=== PATIENT | male | born 1945 | race Two or more races ===

== ENCOUNTER 2018-10-21 15:32 | Emergency (ER) | payer MEDICARE, MEDICAID ==
[2018-10-21] MEDS ORDERED: IBUPROFEN 600 MG TABLET PO ONE (16:22)
--- NOTE | 2018-10-21 16:23 | ER Document Report ---
ED Medical Screen (RME) - General Chief Complaint: Back Pain Stated Complaint: BACK PAIN Time Seen by Provider: 10/21/18 16:21 Mode of Arrival: Ambulatory Information source: Patient TRAVEL OUTSIDE OF THE [place] IN LAST 30 DAYS: No - HPI Patient complains to provider of: LBP Onset: Other - pt with R-sided LBP intermittently for the past 3-4 days with exacerbation today. Denies trauma - Related Data Allergies/Adverse Reactions: No Known Allergies Allergy (Verified 10/21/18 15:37) Past Medical History - Social History Chew tobacco use (# tins/day): No Frequency of alcohol use: None Drug Abuse: None Pulmonary Medical History: Reports: Hx COPD Renal/ Medical History: Denies: Hx Peritoneal Dialysis Past Surgical History: Reports: Hx Cholecystectomy Physical Exam - Vital signs Vitals: Temp Pulse Resp BP Pulse Ox 97.8 F 111 H 21 H 148/49 H 95 10/21/18 15:45 10/21/18 15:45 10/21/18 15:45 10/21/18 15:45 10/21/18 15:45 Course - Vital Signs Vital signs: Temp Pulse Resp BP Pulse Ox 97.8 F 111 H 21 H 148/49 H 95 10/21/18 15:45 10/21/18 15:45 10/21/18 15:45 10/21/18 15:45 10/21/18 15:45
[2018-10-21 17:42] LABS: APPEARANCE,URINE CLEAR; BILIRUBIN,URINE NEGATIVE (NEGATIVE); COLOR,URINE YELLOW; GLUCOSE, URINE NEGATIVE (NEGATIVE); KETONES,URINE NEGATIVE (NEGATIVE); LEUKOCYTE ESTERASE,URINE NEGATIVE (NEGATIVE); NITRITE,URINE NEGATIVE (NEGATIVE); PROTEIN,URINE NEGATIVE (NEGATIVE); URINE SPECIFIC GRAVITY 1.005; UROBILINOGEN,URINE NEGATIVE mg/dL (<2.0)
--- NOTE | 2018-10-21 17:49 | RADIOLOGY REPORT (SQ) ---
EXAM DESCRIPTION: L SPINE WHOLE COMPLETED DATE/TIME: 10/21/2018 5:36 pm REASON FOR STUDY: R LBP COMPARISON: None. NUMBER OF VIEWS: Five views including obliques. TECHNIQUE: AP, lateral, oblique, and sacral radiographic images acquired of the lumbar spine. LIMITATIONS: None. FINDINGS: MINERALIZATION: Osteopenia. SEGMENTATION: Normal. No transitional anatomy. ALIGNMENT: Normal. VERTEBRAE: There is a superior endplate deformity of the L3 vertebral body. DISCS: Generally mild multilevel disc degenerative disease and osteophytosis. Moderate to severe mul tilevel facet degenerative disease. POSTERIOR ELEMENTS: No pars defect or posterior arch defects. HARDWARE: None in the spine. PARASPINAL SOFT TISSUES: Normal. PELVIS: Intact as visualized. No fractures or worrisome bone lesions. SI joints intact. OTHER: No other significant finding. IMPRESSION: Age-indeterminate superior endplate deformity the L3 vertebral body. Correlate for acut e point tenderness. MRI may be used to evaluate for acute marrow edema if desired. Otherwise mild m ultilevel disc degenerative disease and moderate to severe multilevel facet degenerative disease of t he lumbar spine. TECHNICAL DOCUMENTATION: JOB ID: [id number] [employer]- All Rights Reserved Reading location - IP/workstation name: [email or web address]
[2018-10-21] MEDS ORDERED: HYDROMORPHONE HCL INJ/PF 2 MG/ML AMPULE IM ONE (19:56)
[2018-10-21] MEDS ORDERED: LIDOCAINE 5% (700 MG) TRANSDERMAL ADH..PATCH TP ONE (19:56)
[2018-10-21] MEDS ORDERED: HYDROCODONE/ACETAMINOPHEN 5-325 MG (6 TAB/ER DISP) PO PRN (19:57)
--- NOTE | 2018-10-21 20:00 | ER Document Report ---
ED General - General Chief Complaint: Back Pain Stated Complaint: BACK PAIN Time Seen by Provider: 10/21/18 16:21 Mode of Arrival: Ambulatory Notes: Patient is a 73-year-old male with a past medical history of COPD, continues to smoke, hypertension, history of lung cancer, previously on chemotherapy and radiation although has not been on treatment in 7-8 months. The patient is visiting here from [place]. He presents with 2 months of intermittent right low back pain that has been treated by his primary care physician. He has describes the pain as a throbbing, aching, intermittent pain to his right mid and low back although denies midline tenderness. States the pain is dramatically worsened by movement or lying on the affected area. He denies any shortness of breath, pleuritic pain, hemoptysis or history of DVT or pulmonary embolus. Denies any direct trauma to the area. States that he has been in touch with his primary care doctor regarding this issue. He has tried hydrocodone, cyclobenzaprine, has had no relief with these medications. He denies any bowel or bladder incontinence, urinary mc, difficulty M bleeding, weakness or numbness. TRAVEL OUTSIDE OF THE [place] IN LAST 30 DAYS: No - Related Data Allergies/Adverse Reactions: No Known Allergies Allergy (Verified 10/21/18 15:37) Past Medical History - General Information source: Patient - Social History Smoking Status: Current Every Day Smoker Chew tobacco use (# tins/day): No Frequency of alcohol use: None Drug Abuse: None Lives with: Family Family History: Reviewed & Not Pertinent Patient has suicidal ideation: No Patient has homicidal ideation: No Pulmonary Medical History: Reports: Hx COPD Renal/ Medical History: Denies: Hx Peritoneal Dialysis Past Surgical History: Reports: Hx Cholecystectomy Review of Systems - Review of Systems Notes: Constitutional: Negative for fever. HENT: Negative for sore throat. Eyes: Negative for visual changes. Cardiovascular: Negative for chest pain. Respiratory: Negative for shortness of breath. Gastrointestinal: Negative for abdominal pain, vomiting or diarrhea. Genitourinary: Negative for dysuria. Musculoskeletal: Positive for mid and low back pain Skin: Negative for rash. Neurological: Negative for headaches, weakness or numbness. 10 point ROS negative except as marked above and in HPI. Physical Exam - Vital signs Vitals: Temp Pulse Resp BP Pulse Ox 97.8 F 111 H 21 H 148/49 H 95 03/23/19 15:45 10/21/18 15:45 10/21/18 15:45 10/21/18 15:45 10/21/18 15:45 Interpretation: Tachycardic - Resolved at the time of my assessment with a heart rate of 96 Notes: PHYSICAL EXAMINATION: GENERAL: Frail, somewhat elderly male in no acute distress. Standing up walking around the room. HEAD: Atraumatic, normocephalic. EYES: Pupils equal round and reactive to light, extraocular movements intact, sclera anicteric, conjunctiva are normal. ENT: nares patent, oropharynx clear without exudates. Moist mucous membranes. NECK: Normal range of motion, supple without lymphadenopathy LUNGS: Breath sounds clear to auscultation bilaterally and equal. No wheezes rales or rhonchi. HEART: Regular rate and rhythm without murmurs ABDOMEN: Soft, nontender, normoactive bowel sounds. No guarding, no rebound. No masses appreciated. Back: No midline spinal tenderness, step-offs or deformities. There is pain on palpation of the paraspinous muscles in the lower thoracic and upper right paraspinous spaces. EXTREMITIES: 5 out of 5 strength both distally and proximally bilateral lower extremities. 2+ patellar reflexes bilaterally. No clonus. Sensation grossly intact in the bilateral lower extremities. Patient is able to ambulate without difficulty. Normal range of motion, no pitting or edema. No cyanosis. NEUROLOGICAL: No focal neurological deficits. Moves all extremities spontaneously and on command. PSYCH: Normal mood, normal affect. SKIN: Warm, Dry, normal turgor, no rashes or lesions noted. Course - Re-evaluation Re-evalutation: 10/21/18 19:59 Presentation of a well appearing patient complaining of acute on chronic back pain. Patient states that he is intermittently had this back pain for the last 2 months although it became worse over the last 2 days. Has been following with his primary care doctor in [place] but he is down visiting his son and wanted to seek medical attention due to the degree of pain. Exam is without point tenderness over vertebral bodies, pulsatile abdominal mass, and patient has symmetric and intact lower extremity strength, sensation, and reflexes without clonus. 2+ symmetric medial malleolar and dorsalis pedis pulses. The patient does have a history of lung cancer, not currently on chemotherapy or radiation. I have expressed concern that the possibility of his pain could be related to metastatic disease although notably on exam his pain is almost exclusively off to the flanks and paraspinous muscles and he has no midline spinal tenderness, swelling, step-offs or deformities. I do not have the availability of MRI at this time and do not believe that he requires an emergent MRI as he has no neurologic impingement symptoms, no fever, and that his symptoms have been ongoing for at least 2 months. The patient denies any component of pleuritic pain, shortness of breath, hemoptysis and is very clear to state that the only one that seems to worsen the pain is movement. His clinical history is not consistent with an acute pulmonary embolus. At this time will discharge with return precautions and follow-up recommendations. Verbal discharge instructions given a the bedside and opportunity for questions given. Medication warnings reviewed. Patient is in agreement with this plan and has verbalized understa nding of return precautions and the need for primary care follow-up in the next 24-72 hours. - Vital Signs Vital signs: Temp Pulse Resp BP Pulse Ox 97.6 F 102 H 20 132/83 H 93 10/21/18 19:33 10/21/18 19:33 10/21/18 19:33 10/21/18 19:33 10/21/18 19:33 - Laboratory Laboratory results interpreted by me: 10/21/18 17:17 Urine Blood SMALL H - Diagnostic Test Radiology reviewed: Reports reviewed Discharge - Discharge Clinical Impression: Mid back pain on right side Low back pain Qualifiers: Chronicity: acute Back pain laterality: right Sciatica presence: without sciatica Qualified Code(s): M54.5 - Low back pain Condition: Good Disposition: HOME, SELF-CARE Additional Instructions: You have been seen in the Emergency Department (ED) today for back pain. Your workup and exam have not shown any acute abnormalities and you are likely suffering from muscle strain or possible problems with your discs, but there is no treatment that will fix your symptoms at this time. As we discussed, given your history of cancer I do believe strongly that you need to follow-up for possible MRI of your thoracic and lumbar spinal region as well as possible repeat PET scanning to ensure that your disease has not progressed. Please take the naproxen that has been prescribed as directed. You should also purchase a local lidocaine cream such as "aspercreme with lidocaine" and use per bottle instructions to the affected area. Apply heat to the area as often as you are able. Continue to keep active and avoid prolonged periods of bed rest. Please follow up with your doctor as soon as possible regarding today's ED visit and your back pain. Return to the ED for worsening back pain, fever, weakness or numbness of either leg, or if you develop either (1) an inability to urinate or have bowel movements, or (2) loss of your ability to control your bathroom functions (if you start having "accidents"), or if you develop other new symptoms that concern you.concern you. Prescriptions: Naproxen 500 mg PO BID PRN #14 tablet PRN Reason:
[2018-10-21 20:22] VITALS: BP 130/74
== END 2018-10-21 20:35 | disposition home or self-care (01) ==
LOC: ER 15:32
DX: M54.6 Pain in thoracic spine (principal); M54.5 Low back pain; R00.0 Tachycardia, unspecified; J44.9 Chronic obstructive pulmonary disease, unspecified; F17.200 Nicotine dependence, unspecified, uncomplicated; I10 Essential (primary) hypertension; Z85.118 Personal history of other malignant neoplasm of bronchus and lung; Z90.49 Acquired absence of other specified parts of digestive tract
CPT/HCPCS: 99283; 96372; 81001; 72110; A9270 ×2; J1170

== ENCOUNTER → 2018-11-21 | Outpatient (CLI) | payer MEDICAID, MEDICARE ==
--- NOTE | 2018-11-22 11:35 | RADIOLOGY REPORT (SQ) ---
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 TECHNIQUE: Blood glucose level was verified. Above dose of FDG was injected intravenously. 2-D seg mented attenuation correction images were obtained from the base of the skull to the midthighs. Nonc ontrast CT images were obtained for attenuation correction and fusion with emission images. CT image s were performed without oral or intravenous contrast and are not sensitive for parenchymal lesions. A series of overlapping emission PET images were obtained. Images reviewed and manipulated at [facility] work station by the radiologist. Images stored on PACS. LIMITATIONS: None. FINDINGS: HEAD AND NECK: No areas of abnormal metabolic activity in the soft tissues of the head and neck. CHEST: No areas of abnormal metabolic activity in the chest. On axial image 90, a 2.2 x 1.6 cm soft tissue density nodule is present in the lingula adjacent to the major fissure. This has SUV of 9. A 5 mm smooth round pleural-based nodule is present in the lingula, on axial image 92. This has SUV of 2.1. In the superior segment right lower lobe, a loculated fluid pocket with surrounding rind of lung pare nchymal consolidation is present. Overall this measures about 5.5 by 4 cm in size. There is metabol ic activity in the lung parenchyma around the periphery, with SUV of 8.1. Bandlike non metabolic sca rring is seen along the lateral and inferior edge of this lesion. In lingular apex, adjacent to the major fissure on axial image 102, a 2.3 by 1.4 cm soft tissue nodul e is present with SUV of 6.8. No metabolically active mediastinal or hilar lymph nodes are present. ABDOMEN AND PELVIS: No areas of abnormal metabolic activity in the abdomen or pelvis. Expected physi ologic activity is present in the genitourinary system and bowel. PROXIMAL LOWER EXTREMITIES: No areas of abnormal metabolic activity in the soft tissues of the lower extremities. BONES: No abnormal metabolic activity in the visualized skeleton. ADDITIONAL CT FINDINGS: No additional significant findings on the noncontrast CT images. OTHER: Liver background activity 1.9 SUV. Blood pool background activity 1.7 SUV IMPRESSION: Hypermetabolic lesions in the left lung as above. TECHNICAL DOCUMENTATION: JOB ID: [id number] [employer]- All Rights Reserved Reading location - IP/workstation name: [email or web address]
== END ==
LOC: RAD 18:37
PROVIDERS: ATTEND Internal Medicine Medical Oncology
DX: R91.1 Solitary pulmonary nodule (principal)
CPT/HCPCS: 78815; A9552

== ENCOUNTER 2018-12-13 08:55 | Day surgery (SDC) | payer MEDICARE ==
[2018-12-13 10:06] LABS: INTERNATIONAL RATION (INR) 0.92; PROTHROMBIN TIME 12.8 SEC (11.4-15.4)
[2018-12-13 10:07] LABS: PARTIAL THROMBOPLASTIN TIME 24.1 SEC (23.5-35.8)
[2018-12-13 10:08] LABS: HEMATOCRIT 33.7 % (37.9-51.0); HEMOGLOBIN 11.1 g/dL (13.5-17.0); MEAN CORPUSCULAR HEMOGLOBIN 27.9 pg (27.0-33.4); MEAN CORPUSCULAR VOLUME 85 fl (80-97); PLATELET COUNT 296 10^3/uL (150-450); RED BLOOD COUNT 3.98 10^6/uL (4.35-5.55); RED CELL DISTRIBUTION WIDTH 17.2 % (11.5-14.0); WHITE BLOOD COUNT 9.3 10^3/uL (4.0-10.5)
[2018-12-13 10:15] LABS: BLOOD UREA NITROGEN 12 mg/dL (7-20)
[2018-12-13] MEDS ORDERED: FENTANYL CITRATE INJ/PF 100 MCG/2 ML AMPUL ONE (10:44)
[2018-12-13] MEDS ORDERED: MIDAZOLAM 2 MG/2 ML INJ ONE (10:44)
--- NOTE | 2018-12-13 11:53 | RADIOLOGY REPORT (SQ) ---
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 TECHNIQUE: CT guided biopsy of the LEFT upper lobe pulmonary nodule performed with conscious sedatio n. CT Fluoroscopy Time: 20.[address] scanners at this facility use dose modulation, iterative reconstruction, and/or weight based d osing when appropriate to reduce radiation dose to as low as reasonably achievable (ALARA). [facility]: Dose Right [facility]: CareDose [facility]: Dose Right [facility]: Teradose 4D [facility]: [employer] RADIATION DOSE: CT Rad equipment meets quality standard of care and radiation dose reduction techniq ues were employed. CTDIvol: 4.0 - 27.6 mGy. DLP: 265 mGy-cm. mGy. FINDINGS: After obtaining informed consent and explaining the risks and benefits of conscious sedati on,the patient agreed to the procedure. Prior to the procedure, a time out was performed to verify th e patient's identity and planned procedure. IV sedation was administered and physician direction by the registered nurse using 1 milligrams of Ve rsed and 50 micrograms of fentanyl, for conscious sedation. Physiologic monitoring was provided befor e, during, and after sedation. The total sedation time was 30 minutes. Documentation face to face time, the performing proceduralist, spent monitoring the patient: [address] scanning was performed to localize the percutaneous site for the biopsy approach of th e left upper lobe pulmonary nodule along the major fissure. After sterile skin prep and local lidocaine for skin and deep tissue anesthesia, a coaxial biopsy nee dle was used to obtain multiple cores of tissue. The biopsy tissue was submitted to the lab in forma lobito. There were no immediate complications. Pathology is pending at the time of dictation. IMPRESSION: CT GUIDED BIOPSY OF THE LEFT UPPER LOBE PULMONARY NODULE PERFORMED WITHOUT IMMEDIATE COM PLICATION. PATHOLOGY PENDING. COMMENT: Quality ID 145: Final reports for procedures using fluoroscopy that document radiation exp osure indices, or exposure time and number of fluorographic images (if radiation exposure indices are not available) Patient medication list reviewed: Yes- Quality ID# [id number]:Eligible professional attests to documenting i n the medical record they obtained, updated, or reviewed the patient's current medications.. TECHNICAL DOCUMENTATION: JOB ID: [id number] Quality ID# [id number]: Final reports with documentation of one or more dose reduction techniques (e.g., Aut omated exposure control, adjustment of the mA and/or kV according to patient size, use of iterative r econstruction technique) 2010 [employer]- All Rights Reserved Reading location - IP/workstation name: [email or web address]
--- NOTE | 2018-12-13 11:53 | RADIOLOGY REPORT (SQ) ---
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 TECHNIQUE: CT guided biopsy of the LEFT upper lobe pulmonary nodule performed with conscious sedatio n. CT Fluoroscopy Time: 20.[address] scanners at this facility use dose modulation, iterative reconstruction, and/or weight based d osing when appropriate to reduce radiation dose to as low as reasonably achievable (ALARA). [facility]: Dose Right [facility]: CareDose [facility]: Dose Right [facility]: Teradose 4D [facility]: [employer] RADIATION DOSE: CT Rad equipment meets quality standard of care and radiation dose reduction techniq ues were employed. CTDIvol: 4.0 - 27.6 mGy. DLP: 265 mGy-cm. mGy. FINDINGS: After obtaining informed consent and explaining the risks and benefits of conscious sedati on,the patient agreed to the procedure. Prior to the procedure, a time out was performed to verify th e patient's identity and planned procedure. IV sedation was administered and physician direction by the registered nurse using 1 milligrams of Ve rsed and 50 micrograms of fentanyl, for conscious sedation. Physiologic monitoring was provided befor e, during, and after sedation. The total sedation time was 30 minutes. Documentation face to face time, the performing proceduralist, spent monitoring the patient: [address] scanning was performed to localize the percutaneous site for the biopsy approach of th e left upper lobe pulmonary nodule along the major fissure. After sterile skin prep and local lidocaine for skin and deep tissue anesthesia, a coaxial biopsy nee dle was used to obtain multiple cores of tissue. The biopsy tissue was submitted to the lab in forma lobito. There were no immediate complications. Pathology is pending at the time of dictation. IMPRESSION: CT GUIDED BIOPSY OF THE LEFT UPPER LOBE PULMONARY NODULE PERFORMED WITHOUT IMMEDIATE COM PLICATION. PATHOLOGY PENDING. COMMENT: Quality ID 145: Final reports for procedures using fluoroscopy that document radiation exp osure indices, or exposure time and number of fluorographic images (if radiation exposure indices are not available) Patient medication list reviewed: Yes- Quality ID# [id number]:Eligible professional attests to documenting i n the medical record they obtained, updated, or reviewed the patient's current medications.. TECHNICAL DOCUMENTATION: JOB ID: [id number] Quality ID# [id number]: Final reports with documentation of one or more dose reduction techniques (e.g., Aut omated exposure control, adjustment of the mA and/or kV according to patient size, use of iterative r econstruction technique) 2010 [employer]- All Rights Reserved Reading location - IP/workstation name: [email or web address]
--- NOTE | 2018-12-13 11:55 | RADIOLOGY REPORT (SQ) ---
EXAM DESCRIPTION: CHEST SINGLE VIEW COMPLETED DATE/TIME: 12/13/2018 11:40 am REASON FOR STUDY: MALIGNANT NEOPLASM OF BRONCHUS OR LUNG -- POST BIOPSY COMPARISON: SAME DAY CT EXAM PARAMETERS: NUMBER OF VIEWS: One view. TECHNIQUE: Single frontal radiographic view of the chest acquired. RADIATION DOSE: NA LIMITATIONS: None. FINDINGS: LUNGS AND PLEURA: Left perihilar and mid lung opacity, not significantly changed. Likely small amount of post biopsy hemorrhage along the left upper lobe. No appreciable pneumothorax. Gauntlet Pairer reta interstitial changes on the right without acute process. No new large effusion. MEDIASTINUM AND HILAR STRUCTURES: Stable left perihilar opacity. HEART AND VASCULAR STRUCTURES: Normal heart size. Aortic atherosclerosis. BONES: Decreased mineralization. No acute findings. Chronic left-sided rib fractures. HARDWARE: None in the chest. OTHER: No other significant finding. IMPRESSION: No pneumothorax post left lung biopsy. TECHNICAL DOCUMENTATION: JOB ID: [id number] [employer]- All Rights Reserved Reading location - IP/workstation name: [email or web address]
--- NOTE | 2018-12-13 14:11 | RADIOLOGY REPORT (SQ) ---
EXAM DESCRIPTION: CHEST SINGLE VIEW COMPLETED DATE/TIME: 12/13/2018 1:37 pm REASON FOR STUDY: MALIGNANT NEOPLASM OF BRONCHUS OR LUNG -- POST BIOPSY (2 HR FILM) COMPARISON: Same day radiograph EXAM PARAMETERS: NUMBER OF VIEWS: One view. TECHNIQUE: Single frontal radiographic view of the chest acquired. RADIATION DOSE: NA LIMITATIONS: None. FINDINGS: LUNGS AND PLEURA: Stable left perihilar and mid lung opacities. No pneumothorax post biop sy. Stable chronic interstitial changes bilaterally. MEDIASTINUM AND HILAR STRUCTURES: Stable. HEART AND VASCULAR STRUCTURES: Stable. BONES: No acute findings. HARDWARE: None in the chest. OTHER: No other significant finding. IMPRESSION: No pneumothorax on the 2 hour post biopsy radiograph. TECHNICAL DOCUMENTATION: JOB ID: [id number] [employer]- All Rights Reserved Reading location - IP/workstation name: [email or web address]
[2018-12-13 18:18] VITALS: BP 107/68
== END 2018-12-13 14:45 | disposition home or self-care (01) ==
LOC: RAD 08:55
PROVIDERS: ATTEND Internal Medicine Medical Oncology
DX: Z79.01 Long term (current) use of anticoagulants (principal); C34.92 Malignant neoplasm of unspecified part of left bronchus or lung; J60 Coalworker's pneumoconiosis
CPT/HCPCS: 36415; 84520; 82565; 85027; 85610; 85730; 88305 ×2; 71045; 77012; 32405; J2250; J3010

== ENCOUNTER 2019-01-28 19:34 | Emergency (ER) | payer MEDICARE ==
[2019-01-28] MEDS ORDERED: ASPIRIN 81 MG TABLET, CHEWABLE PO ONE (20:29)
[2019-01-28 20:39] LABS: ABSOLUTE EOSINOPHILS # (AUTO) 0.2 10^3/uL (0.0-0.6); ABSOLUTE LYMPHOCYTES (AUTO) 0.9 10^3/uL (0.5-4.7); ABSOLUTE NEUT (AUTO) 6.3 10^3/uL (1.7-8.2); BASOPHILS % (AUTO) 0.4 % (0-2); EOSINOPHILS % (AUTO) 2.9 % (0-6); HEMATOCRIT 30.2 % (37.9-51.0); LYMPHOCYTES % (AUTO) 10.4 % (13-45); MEAN CORPUSCULAR HEMOGLOBIN 27.7 pg (27.0-33.4); MEAN CORPUSCULAR VOLUME 84 fl (80-97); MONOCYTES % (AUTO) 11.8 % (3-13); PLATELET COUNT 437 10^3/uL (150-450); RED CELL DISTRIBUTION WIDTH 15.6 % (11.5-14.0); SEGMENTED NEUTROPHILS % (AUTO) 74.5 % (42-78); TOTAL CELLS COUNTED % (AUTO) 100 %; WHITE BLOOD COUNT 8.5 10^3/uL (4.0-10.5)
[2019-01-28 20:59] LABS: ALANINE AMINOTRANSFERASE 30 U/L (21-72); ALBUMIN 3.3 g/dL (3.5-5.0); ALKALINE PHOSPHATASE 79 U/L (38-126); ANION GAP 6 (5-19); ASPARTATE AMINO TRANSFERASE 27 U/L (17-59); BILIRUBIN,DIRECT 0.2 mg/dL (0.0-0.4); BILIRUBIN,TOTAL 0.2 mg/dL (0.2-1.3); BLOOD UREA NITROGEN 15 mg/dL (7-20); CARBON DIOXIDE 32 mmol/L (22-30); CHLORIDE 96 mmol/L (98-107); CREATINE KINASE 59 U/L (55-170); GLUCOSE 109 mg/dL (75-110); POTASSIUM 4.2 mmol/L (3.6-5.0)
[2019-01-28 21:11] LABS: CREATINE KINASE MB 1.08 ng/mL (<4.55)
[2019-01-28 21:17] LABS: TROPONIN I < 0.012 ng/mL
--- NOTE | 2019-01-28 21:27 | RADIOLOGY REPORT (SQ) ---
EXAM DESCRIPTION: XR CHEST 1 VIEW COMPLETED DATE/TME: 01/28/2019 20:30 CLINICAL HISTORY: chest pain COMPARISON: December 13, 2018 FINDINGS: Abnormal opacity at the level of the left hilum and periphery of the left lung worrisome for underlying mass, this is unchanged compared with the prior exam. There is mild elevation of the left hemidiaphragm. Patient is rotated. EKG leads project over the chest. Increased opacity at the left lower lung could represent atelectasis versus pleural fluid versus pleural thickening. IMPRESSION: Increased opacity at the left lower lung could represent atelectasis versus pleural fluid versus pleural thickening. Abnormal opacity at the level of the left hilum and periphery of the left lung worrisome for underlying mass, this is unchanged compared with the prior exam
--- NOTE | 2019-01-28 22:27 | ER Document Report ---
ED General - General Chief Complaint: Chest Pain Stated Complaint: CHEST PAIN Time Seen by Provider: 01/28/19 21:15 Primary Care Provider: CORA JUSTIN MD [Primary Care Provider] - Follow up as needed Cannot obtain history due to: Other - Very poor historian Notes: Patient is a 73-year-old male with a past medical history of COPD, continues to smoke, hypertension, history of lung cancer, previously on chemotherapy and radiation although has not been on treatment in since November 2017 who presents with an episode of right-sided chest pain that happened earlier this morning. This is greater than 12 hours from time of presentation to the emergency department. Patient is a very challenging historian, can only characterize this is being a pain to the right central chest. States that he took 1 of his normal home narcotics and it went away and has not returned since. States that he had similar pain many times within the past 1 year and states that he has a history of multiple rib fractures to the side and often gets similar pain. Nothing was this no new or different otherwise prompted a visit to the emergency department today. At the time of my evaluation he denies any symptoms of any kind. Denies any history of coronary artery disease. Denies that the pain rating into the arm, jaw or back. Denies pleuritic discomfort or shortness of breath. No history of DVT or pulmonary embolus. Has not seen his primary physician regarding today's concerns. TRAVEL OUTSIDE OF THE [place] IN LAST 30 DAYS: No - Related Data Allergies/Adverse Reactions: No Known Allergies Allergy (Verified 10/21/18 15:37) Past Medical History - General Information source: Patient - Social History Smoking Status: Current Every Day Smoker Frequency of alcohol use: None Drug Abuse: None Lives with: Family Family History: Reviewed & Not Pertinent Patient has suicidal ideation: No Patient has homicidal ideation: No - Past Medical History Cardiac Medical History: Reports: Hx Hypertension Pulmonary Medical History: Reports: Hx COPD Renal/ Medical History: Denies: Hx Peritoneal Dialysis Past Surgical History: Reports: Hx Cholecystectomy, Hx Genitourinary Surgery Review of Systems - Review of Systems Notes: Constitutional: Negative for fever. HENT: Negative for sore throat. Eyes: Negative for visual changes. Cardiovascular: Positive for chest pain greater than 12 hours ago without recurrence Respiratory: Negative for shortness of breath. Gastrointestinal: Negative for abdominal pain, vomiting or diarrhea. Genitourinary: Negative for dysuria. Musculoskeletal: Negative for back pain. Skin: Negative for rash. Neurological: Negative for headaches, weakness or numbness. 10 point ROS negative except as marked above and in HPI. Physical Exam - Vital signs Vitals: Temp Pulse Resp BP Pulse Ox 98.2 F 103 H 20 125/58 L 92 01/28/19 19:48 01/28/19 19:48 01/28/19 19:48 01/28/19 19:48 01/28/19 19:48 Interpretation: Tachycardic Notes: PHYSICAL EXAMINATION: GENERAL: Frail, somewhat emaciated but in no acute distress HEAD: Atraumatic, normocephalic. EYES: Pupils equal round and reactive to light, extraocular movements intact, sclera anicteric, conjunctiva are normal. ENT: nares patent, oropharynx clear without exudates. Moist mucous membranes. NECK: Normal range of motion, supple without lymphadenopathy LUNGS: Breath sounds clear to auscultation bilaterally and equal. Trace wheezing in all lung grace HEART: Regular rate and rhythm without murmurs ABDOMEN: Soft, nontender, normoactive bowel sounds. No guarding, no rebound. No masses appreciated. EXTREMITIES: Normal range of motion, no pitting or edema. No cyanosis. NEUROLOGICAL: No focal neurological deficits. Moves all extremities spontaneously and on command. PSYCH: Normal mood, normal affect. SKIN: Warm, Dry, normal turgor, no rashes or lesions noted. Course - Re-evaluation Re-evalutation: 01/28/19 22:29 Presentation of chest pain in an otherwise well appearing patient. Patient has had similar pain many times in the past by his own report, pain has been gone for more than 12 hours prior to the time of my assessment. Low clinical suspicion for ACS given clinical history, exam, EKG without ST elevations or depressions, and negative initial troponin. Patient denies any shortness of breath, pleuritic discomfort or active pain in over 12 hours and although he does have risk factors for a pulmonary embolus I have a very low clinical suspicion for this diagnosis given absence of any symptoms at the time of my evaluation. CXR without evidence of pneumothorax or pneumonia. No widened mediastinum. Aortic dissection also seems unlikely given history, symmetric pulses, CXR, and vitals. Patient is requesting to go home as soon as I evaluate him. He does not wish to remain in the hospital for further assessment. I have offered CT of the chest as well as additional troponin assay testing to further reduce the low risk probability of PE and ACS. Patient states understanding, declines these tests. At this time will discharge with return precautions and follow-up recommendations. Patient does have a urinary tract infection, does complain of dysuria and cephalexin has been initiated. Verbal discharge instructions given a the bedside and opportunity for questions given. Medication warnings reviewed. Patient is in agreement with this plan and has verbalized understanding of return precautions and the need for primary care follow-up in the next 24-72 hours. - Vital Signs Vital signs: Temp Pulse Resp BP Pulse Ox 98.2 F 103 H 26 H 134/68 H 100 01/28/19 19:48 01/28/19 19:48 01/28/19 21:01 01/28/19 21:00 01/28/19 21:01 - Laboratory Result Diagrams: 01/28/19 20:20 01/28/19 20:20 Laboratory results interpreted by me: 01/28/19 01/28/19 01/28/19 20:20 20:20 22:00 RBC 3.60 L Hgb 10.0 L Hct 30.2 L RDW 15.6 H Lymphocytes % 10.4 L Sodium 134.0 L Chloride 96 L Carbon Dioxide 32 H Total Protein 6.0 L Albumin 3.3 L Urine Blood SMALL H Ur Leukocyte Esterase SMALL H - Diagnostic Test Radiology reviewed: Image reviewed, Reports reviewed Radiology results interpreted by me: 01/28/19 22:31 Chest x-ray: No acute infiltrate, no pneumothorax, left-sided findings noted by radiology unchanged from previous assessment - EKG Interpretation by Me Additional EKG results interpreted by me: 01/28/19 22:31 Sinus tachycardia, rate 105, no ST elevations or depressions. QTC is 476. Discharge - Discharge Clinical Impression: Chest discomfort Urinary tract infection Qualifiers: Urinary tract infection type: site unspecified Hematuria presence: without hematuria Qualified Code(s): N39.0 - Urinary tract infection, site not specified Condition: Good Disposition: HOME, SELF-CARE Additional Instructions: You were seen today for chest pain. The exact cause of your pain is unclear. Although your testing here is normal is critical that you follow-up with your primary care physician for continued evaluation of this chest pain and possible stress testing. I recommended you see your physician within the next 24-48 hours to be evaluated for consideration of a stress test. Please return to emergency department immediately if you have worsening of your chest pain, shortness of breath, vomiting, become unable to exert yourself due to pain or difficulty breathing, you pass out, or have any pain that radiates into your arms, jaw, or back. Please also return if you have any additional symptoms that are concerning to you. Your urine shows findings consistent with a urinary tract infection. Please take all the antibiotics as directed even if your symptoms have improved. Please follow-up with your primary care physician as needed. Return to emergency room if you develop fever >101F, persistent vomiting, become lethargic, have severe pain in your sides, or any other symptoms that are concerning to you. Prescriptions: RX: Cephalexin Monohydrate [Keflex 500 mg Capsule] 500 mg PO Q6H 7 Days capsule Referrals: CORA JUSTIN MD [Primary Care Provider] - Follow up in 3-5 days
[2019-01-28 22:32] LABS: APPEARANCE,URINE SLIGHTLY-CLOUDY; BILIRUBIN,URINE NEGATIVE (NEGATIVE); COLOR,URINE YELLOW; GLUCOSE, URINE NEGATIVE (NEGATIVE); KETONES,URINE NEGATIVE (NEGATIVE); LEUKOCYTE ESTERASE,URINE SMALL (NEGATIVE); NITRITE,URINE NEGATIVE (NEGATIVE); PROTEIN,URINE NEGATIVE (NEGATIVE); URINE SPECIFIC GRAVITY 1.015; UROBILINOGEN,URINE NEGATIVE mg/dL (<2.0)
[2019-01-28] MEDS ORDERED: CEPHALEXIN 500 MG CAPSULE PO ONE (22:55)
[2019-01-28 23:38] VITALS: BP 135/73
--- NOTE | 2019-01-31 17:57 | EKG REPORT ---
SEVERITY:- BORDERLINE ECG - SINUS TACHYCARDIA LOW VOLTAGE IN FRONTAL LEADS BORDERLINE PROLONGED QT INTERVAL : Confirmed by: Caitlyn Leggett 31-Jan-2019 17:56:15
== END 2019-01-28 23:51 | disposition home or self-care (01) ==
LOC: ER 19:34
DX: R07.9 Chest pain, unspecified (principal); N39.0 Urinary tract infection, site not specified; R00.0 Tachycardia, unspecified; J44.9 Chronic obstructive pulmonary disease, unspecified; I10 Essential (primary) hypertension; F17.200 Nicotine dependence, unspecified, uncomplicated; Z85.118 Personal history of other malignant neoplasm of bronchus and lung
CPT/HCPCS: 99285; 36415; 87086; 82553; 82550; 85025; 80053; 81001; 84484; 71045; 93010; A9270 ×2

== ENCOUNTER → 2019-02-12 | Outpatient (CLI) | payer MEDICARE ==
--- NOTE | 2019-02-12 14:42 | RADIOLOGY REPORT (SQ) ---
EXAM DESCRIPTION: CT CHEST WITH COMPLETED DATE/TIME: 02/12/2019 10:35 am REASON FOR STUDY: LUNG CA (C34.90) C34.90 MALIGNANT NEOPLASM OF UNSP PART OF UNSP BRONCHUS OR L COMPARISON: PET-CT 11/21/2018 TECHNIQUE: CT scan of the chest performed using helical scanning technique with dynamic intravenous contrast injection. Images reviewed with lung, soft tissue and bone windows. Reconstructed coronal and sagittal MPR and MIP images reviewed. All images stored on PACS. All CT scanners at this facility use dose modulation, iterative reconstruction, and/or weight based d osing when appropriate to reduce radiation dose to as low as reasonably achievable (ALARA). [facility]: Dose Right [facility]: CareDose [facility]: Dose Right [facility]: Teradose 4D [facility]: Recargo CONTRAST TYPE AND DOSE: See separate report of the same date. RENAL FUNCTION: See separate report. RADIATION DOSE: . LIMITATIONS: None. FINDINGS: LUNGS AND PLEURA: Pleural-based lingular nodule 2.9 x 2.8 cm, previously 1.6 x 2.2 cm. Le ft lower lobe consolidation/ mass which was hypermetabolic, previously 4.0 x 5.5, now 4.7 x 7.4 cm. No suspicious nodules in the right lung. HILAR AND MEDIASTINAL STRUCTURES: No identified masses or abnormal nodes. HEART AND VASCULAR STRUCTURES: No aneurysm or dissection. No central pulmonary emboli. No pericardi al effusion. HARDWARE: None in the chest. UPPER ABDOMEN: See separate report of the CT of the abdomen. THYROID AND OTHER SOFT TISSUES: No masses. No adenopathy. BONES: No significant finding. OTHER: No other significant finding. IMPRESSION: Disease progression in the left lung. TECHNICAL DOCUMENTATION: JOB ID: [id number] Quality ID # [id number]: Final reports with documentation of one or more dose reduction techniques (e.g., Au tomated exposure control, adjustment of the mA and/or kV according to patient size, use of iterative reconstruction technique) 2010 [employer]- All Rights Reserved Reading location - IP/workstation name: [email or web address]
--- NOTE | 2019-02-12 14:44 | RADIOLOGY REPORT (SQ) ---
EXAM DESCRIPTION: CT ABD/PELVIS WITH IV ORAL COMPLETED DATE/TIME: 02/12/2019 10:35 am REASON FOR STUDY: LUNG CA (C34.90) C34.90 MALIGNANT NEOPLASM OF UNSP PART OF UNSP BRONCHUS OR L COMPARISON: None. TECHNIQUE: CT scan of the abdomen and pelvis performed with intravenous and oral contrast using alessandra leonarda scanning technique with dynamic intravenous contrast injection. Images reviewed with lung, soft t issue, and bone windows. Reconstructed coronal and sagittal MPR images reviewed. Delayed images for e valuation of the urinary system also acquired. All images stored on PACS. All CT scanners at this facility use dose modulation, iterative reconstruction, and/or weight based d osing when appropriate to reduce radiation dose to as low as reasonably achievable (ALARA). [facility]: Dose Right [facility]: CareDose [facility]: Dose Right [facility]: Teradose 4D [facility]: Kantox CONTRAST TYPE AND DOSE: contrast/concentration: Isovue 350.00 mg/ml; Total Contrast Delivered: 45.0 ml; Total Saline Delivered: 65.0 ml RENAL FUNCTION: GFR > 60. RADIATION DOSE: CT Rad equipment meets quality standard of care and radiation dose reduction techniq ues were employed. CTDIvol: 4.4 - 7.0 mGy. DLP: 675 mGy-cm. . LIMITATIONS: None. FINDINGS: LOWER CHEST: See separate report of the CT of the chest. LIVER: Normal size. No masses. No dilated ducts. SPLEEN: Normal size. No focal lesions. PANCREAS: No masses. No significant calcifications. No adjacent inflammation or peripancreatic fluid collections. Pancreatic duct not dilated. GALLBLADDER: Surgically absent. ADRENAL GLANDS: No significant masses or asymmetry. RIGHT KIDNEY AND URETER: No solid masses. No significant calcifications. No hydronephrosis or hyd roureter. LEFT KIDNEY AND URETER: No solid masses. No significant calcifications. No hydronephrosis or hydr oureter. AORTA AND VESSELS: Ectasia. No aneurysm. RETROPERITONEUM: No retroperitoneal adenopathy, hemorrhage or masses. BOWEL AND PERITONEAL CAVITY: No obstruction. No visualized masses. No free fluid. No inflammatory ch anges or thickening of bowel wall. APPENDIX: Not visualized. PELVIS: No significant masses. Normal bladder. No free fluid. ABDOMINAL WALL: No masses. No hernias. BONES: Nothing acute. OTHER: No other significant finding. IMPRESSION: No evidence of metastatic disease. TECHNICAL DOCUMENTATION: JOB ID: [id number] Quality ID # [id number]: Final reports with documentation of one or more dose reduction techniques (e.g., Au tomated exposure control, adjustment of the mA and/or kV according to patient size, use of iterative reconstruction technique) 2010 [employer]- All Rights Reserved Reading location - IP/workstation name: [email or web address]
== END ==
LOC: RAD 09:45
PROVIDERS: ATTEND Internal Medicine Medical Oncology
DX: C34.90 Malignant neoplasm of unspecified part of unspecified bronchus or lung (principal)
CPT/HCPCS: 71260; 74177

== ENCOUNTER → 2019-06-04 | Outpatient (CLI) | payer MEDICARE, MEDICAID ==
--- NOTE | 2019-06-04 13:51 | RADIOLOGY REPORT (SQ) ---
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 CT abdomen 02/12/2019 RADIONUCLIDE AND DOSE: 20 millicuries Tc99m HDP. The route of agent administration: Intravenous. ADDITIONAL DRUGS AND DOSES: None. TECHNIQUE: Routine delayed images at 3 hours post radionuclide injection acquired of the bony skelet on including anterior and posterior whole-body projections and additional focused images as needed. LIMITATIONS: None. FINDINGS: BONES: There is mild degenerative uptake in the shoulders and in the left wrist. KIDNEYS: Symmetric excretion without obstruction. OTHER: No other significant finding. IMPRESSION: There is no evidence of metastatic disease to bone. There is mild degenerative uptake. COMMENT: Quality measure 147: Current bone scan is compared with any available plain radiographs, p rior bone scans, and CT/MRI. TECHNICAL DOCUMENTATION: JOB ID: [id number] [employer]- All Rights Reserved Reading location - IP/workstation name: [email or web address]
== END ==
LOC: RAD 09:12
PROVIDERS: ATTEND Internal Medicine Hematology & Oncology
DX: C34.92 Malignant neoplasm of unspecified part of left bronchus or lung (principal)
CPT/HCPCS: 78306; A9561; Q9969

== ENCOUNTER → 2019-07-05 | Outpatient (CLI) | payer MEDICARE, MEDICAID ==
--- NOTE | 2019-07-06 11:24 | RADIOLOGY REPORT (SQ) ---
EXAM DESCRIPTION: MRI LUMBAR SPINE COMBO COMPLETED DATE/TIME: 07/05/2019 9:17 pm REASON FOR STUDY: (G95.20)UNSPECIFIED CORD COMPRESSION C34.92 MALIGNANT NEOPLASM OF UNSP PART OF LE FT BRONCHUS OR L M54.6 PAIN IN THORACIC SPINE G95.20 UNSPECIFIED CORD COMPRESSION COMPARISON: None. TECHNIQUE: Sagittal and Axial imaging includes T1, T1 post gadolinium, T2, STIR and gradient echo se quences. Coronal T2/HASTE imaging. CONTRAST TYPE AND DOSE: 10 mL Dotarem. RENAL FUNCTION: Not indicated. ACR Type II contrast agent associated with few, if any, unconfounded cases of NSF LIMITATIONS: None. FINDINGS: VISUALIZED UPPER ABDOMEN: Limited evaluation. No acute or suspicious findings suggested. SEGMENTATION: No transitional anatomy. The lowest well-developed disc space is labeled L5-S1. ALIGNMENT: Anatomic. VERTEBRAE: Old compression changes at T12 and L3 with mild retropulsion of bone at L3. BONE MARROW: Reactive changes seen at several levels. DISC SIGNAL: Decreased T2 signal for all L2-S1. POSTERIOR ELEMENTS: Generally intact. No pars defect evident. HARDWARE: None in the spine. CORD AND CONUS: Normal in size and signal intensity. Conus at the L1 level. SOFT TISSUES: Cannot exclude empyema in the left hemithorax. See image 33 series 21. Bronchiectasis and chronic interstitial changes are suggested in the left lower lobe. L1-L2: No significant spinal stenosis or exit foraminal stenosis. L2-L3: Mild concentric disc bulging with slight retropulsion of bone secondary to superior endplate c ompression changes at L3. No significant central canal stenosis. No foraminal stenosis. L3-L4: Mild concentric disc bulging with no significant central canal stenosis. No foraminal stenosi s. L4-L5: There is facet and ligament hypertrophy. Mild broad-based disc bulge. Mild central canal loulou nosis. No foraminal stenosis. L5-S1: Mild concentric disc bulging with no central canal stenosis. No foraminal stenosis. LOWER THORACIC: Incompletely imaged. No stenosis seen. SACRUM: Visualized upper sacrum intact. ENHANCEMENT: No abnormal enhancement. OTHER: No other significant findings. IMPRESSION: 1. Mild disc changes at multiple levels as described. The most significant finding is at L4-5 where there is facet arthropathy and a mild disc bulge resulting in mild central canal stenos is. 2. There are findings in the left hemithorax as described. TECHNICAL DOCUMENTATION: JOB ID: [id number] [employer]- All Rights Reserved Reading location - IP/workstation name: [email or web address]
--- NOTE | 2019-07-06 12:35 | RADIOLOGY REPORT (SQ) ---
EXAM DESCRIPTION: MRI CERVICAL SPINE COMBO COMPLETED DATE/TIME: 07/05/2019 9:17 pm REASON FOR STUDY: (G95.20)UNSPECIFIED CORD COMPRESSION C34.92 MALIGNANT NEOPLASM OF UNSP PART OF LE FT BRONCHUS OR L M54.6 PAIN IN THORACIC SPINE G95.20 UNSPECIFIED CORD COMPRESSION COMPARISON: None. TECHNIQUE: Sagittal and Axial imaging includes T1, T2, STIR and gradient echo sequences. T1 post yanci olinium sequences. CONTRAST TYPE AND DOSE: 10 mL choose 6 RENAL FUNCTION: Not indicated. ACR Type II contrast agent associated with few, if any, unconfounded cases of NSF LIMITATIONS: None. FINDINGS: ALIGNMENT: Mild anterolisthesis of C5 on C6. VERTEBRAE: Chronic mild loss of height of C5 and C6 vertebrae. BONE MARROW: Normal. No marrow replacement or reactive changes. DISCS: There is mild disc narrowing from C5-T1. HARDWARE: None in the spine. CORD AND BASE OF BRAIN: Normal in size and signal intensity. SOFT TISSUES: No soft tissue masses. C1-C2: No significant spinal stenosis. C2-C3: No significant spinal stenosis or exit foraminal stenosis. C3-C4: Broad-based disc/osteophyte complex with no central canal stenosis. Mild foraminal stenosis s econdary to uncovertebral osteophytes and hypertrophic facet changes on the left, left more than righ t. C4-C5: Mild foraminal narrowing secondary to uncovertebral osteophytes and hypertrophic facet changes on the left. C5-C6: Broad-based disc/osteophyte complex narrows the anterior CSF space but does not deform the cor d. Mild right foraminal narrowing more than left secondary to uncovertebral osteophytes and right fa cet hypertrophy. C6-C7: Mild foraminal narrowing secondary to uncovertebral osteophytes and hypertrophic facet changes . C7-T1: No significant spinal stenosis or exit foraminal stenosis. UPPER THORACIC: Incompletely imaged. No significant spinal stenosis or exit foraminal stenosis. ENHANCEMENT: No abnormal enhancement. OTHER: No other significant finding. IMPRESSION: Mild disc changes with spondylosis and facet arthropathy at multiple levels as described . Most significant findings appear to be at C5-6 with there is mild central canal stenosis and marco a inal stenosis as described. COMMENT: None. TECHNICAL DOCUMENTATION: JOB ID: [id number] [employer]- All Rights Reserved Reading location - IP/workstation name: [email or web address]
== END ==
LOC: RAD 18:37
PROVIDERS: ATTEND Nurse Practitioner Family
DX: C34.92 Malignant neoplasm of unspecified part of left bronchus or lung (principal); M51.86 Other intervertebral disc disorders, lumbar region; G95.20 Unspecified cord compression
CPT/HCPCS: 82565; 72156; 72157; 72158; A9576

== ENCOUNTER → 2019-08-23 | Outpatient (CLI) | payer MEDICARE, MEDICAID ==
--- NOTE | 2019-08-23 12:59 | RADIOLOGY REPORT (SQ) ---
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 No oral contrast. Images reviewed with lung, soft tissue, and bone windows. Reconstructed coronal and sagittal MPR images reviewed. Delayed images for evaluation of the urinary system also acquired. All images stored on PACS. All CT scanners at this facility use dose modulation, iterative reconstruction, and/or weight based d osing when appropriate to reduce radiation dose to as low as reasonably achievable (ALARA). [facility]: Dose Right [facility]: CareDose [facility]: Dose Right [facility]: Teradose 4D [facility]: Strikingly CONTRAST TYPE AND DOSE: contrast/concentration: Isovue 350.00 mg/ml; Total Contrast Delivered: 49.0 ml; Total Saline Delivered: 65.0 ml RENAL FUNCTION: Creatinine 0.9 RADIATION DOSE: CT Rad equipment meets quality standard of care and radiation dose reduction techniq ues were employed. CTDIvol: 4.5 - 8.5 mGy. DLP: 721 mGy-cm.. LIMITATIONS: None. FINDINGS: LOWER CHEST: See separate report of the CT of the chest. LIVER: Normal size. No masses. No dilated ducts. SPLEEN: Normal size. No focal lesions. PANCREAS: No masses. No significant calcifications. No adjacent inflammation or peripancreatic fluid collections. Pancreatic duct not dilated. GALLBLADDER: Surgically absent. ADRENAL GLANDS: No significant masses or asymmetry. RIGHT KIDNEY AND URETER: No solid masses. No significant calcifications. No hydronephrosis or hyd roureter. LEFT KIDNEY AND URETER: No solid masses. No significant calcifications. No hydronephrosis or hydr oureter. AORTA AND VESSELS: No aneurysm. No dissection. Renal arteries, SMA, celiac without stenosis. RETROPERITONEUM: No retroperitoneal adenopathy, hemorrhage or masses. BOWEL AND PERITONEAL CAVITY: No masses or inflammatory changes. No free fluid or peritoneal masses. APPENDIX: Normal. PELVIS: No mass. No free fluid. Normal bladder. ABDOMINAL WALL: No masses. No hernias. BONES: Superior endplate compression changes at L3 that are stable. OTHER: No other significant finding. IMPRESSION: There is no evidence of metastatic disease in the abdomen or pelvis. Stable compression changes at L3. TECHNICAL DOCUMENTATION: JOB ID: [id number] Quality ID # [id number]: Final reports with documentation of one or more dose reduction techniques (e.g., Au tomated exposure control, adjustment of the mA and/or kV according to patient size, use of iterative reconstruction technique) 2010 [employer]- All Rights Reserved Reading location - IP/workstation name: [email or web address]
--- NOTE | 2019-08-24 10:52 | RADIOLOGY REPORT (SQ) ---
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 Images reviewed with lung, soft tissue and bone windows. Reconstructed coronal and sagittal MPR and MIP images reviewed. All images stored on PACS. All CT scanners at this facility use dose modulation, iterative reconstruction, and/or weight based d osing when appropriate to reduce radiation dose to as low as reasonably achievable (ALARA). [facility]: Dose Right [facility]: CareDose [facility]: Dose Right [facility]: Teradose 4D [facility]: Stick and Play CONTRAST TYPE AND DOSE: 49 mL Omnipaque 350- low osmolar. RENAL FUNCTION: Creatinine 0.9 milligrams/deciliter LIMITATIONS: None. FINDINGS: LUNGS AND PLEURA: Severe centrilobular and paraseptal emphysema with mild bronchiectasis a nd areas of subsegmental mucous plugging in the right lower lobe. The increased consolidation in the superior segment of the left lower lobe is in part due to opacification of the dilated bronchi ; the degree of volume loss is unchanged. The amount of pleural fluid in the left pleural space has decre ased. The subpleural opacities in the lingula and inferior portion of the left lower lobe are unchan ged. Since the 05/15/2019 CT, the patient has developed several bilateral pulmonary nodules ; these include the 5 mm nodule in the right upper lobe (image 6 of series 32), the 6 mm nodule in the right middle lobe (image 70 of series 6), and the 3 mm nodule in the left upper lobe (image 15 of series 6) . HILAR AND MEDIASTINAL STRUCTURES: Stable 9 mm right upper peritracheal lymph node (image 18 of series 2) and 10 mm sub- carinal lymph node. HEART AND VASCULAR STRUCTURES: No dissection or aneurysm of the thoracic aorta. The left ventricle i s enlarged. There is mild atherosclerotic calcification of the coronary arteries. There is no peric ardial effusion. HARDWARE: None in the chest. UPPER ABDOMEN: Refer to the separate report of the CT of the abdomen. THYROID AND OTHER SOFT TISSUES: No masses or adenopathy. BONES: Chronic compression deformities of the T3, T8 and T12 vertebral bodies. OTHER: No other finding. IMPRESSION: 1. New bilateral solid pulmonary nodules that measure up to 6 mm. 2. The increased consolidation in the superior segment of the left lower lobe is in part due to opac ification of the dilated bronchi; the degree of volume loss in the lobe is unchanged. 3. Stable mediastinal adenopathy. TECHNICAL DOCUMENTATION: JOB ID: [id number] Quality ID # [id number]: Final reports with documentation of one or more dose reduction techniques (e.g., Au tomated exposure control, adjustment of the mA and/or kV according to patient size, use of iterative reconstruction technique) 2010 [employer]- All Rights Reserved Reading location - IP/workstation name: [email or web address]
== END ==
LOC: RAD 09:51
PROVIDERS: ATTEND Nurse Practitioner Family
DX: C34.92 Malignant neoplasm of unspecified part of left bronchus or lung (principal); R91.8 Other nonspecific abnormal finding of lung field; J43.2 Centrilobular emphysema
CPT/HCPCS: 71260; 74177; 82565

== ENCOUNTER → 2019-09-04 | Outpatient (CLI) | payer MEDICAID, MEDICARE ==
--- NOTE | 2019-09-04 15:11 | RADIOLOGY REPORT (SQ) ---
EXAM DESCRIPTION: MRI CERVICAL SPINE COMBO COMPLETED DATE/TIME: 09/04/2019 2:13 pm REASON FOR STUDY: G95.20 UNSPECIFIED CORD COMPRESSION G95.20 UNSPECIFIED CORD COMPRESSION COMPARISON: 07/05/2019. TECHNIQUE: Sagittal and Axial imaging includes T1, T2, STIR and gradient echo sequences. T1 post yanci olinium sequences. CONTRAST TYPE AND DOSE: 10 mL Dotarem. RENAL FUNCTION: Not indicated. ACR Type II contrast agent associated with few, if any, unconfounded cases of NSF LIMITATIONS: Motion. FINDINGS: There has been no significant change since the prior. No cord compression or abnormal enh ancement. Alignment is unchanged. Mild spinal stenosis C3- 4, C5-6 and C6-7. Significant neural fo raminal stenosis at multiple levels not significantly changed. No significant marrow abnormality. IMPRESSION: No evidence of metastatic disease. Mild spinal stenosis and advanced neural foraminal s tenosis at multiple levels. No significant change. COMMENT: None. TECHNICAL DOCUMENTATION: JOB ID: [id number] [employer] All Rights Reserved Reading location - IP/workstation name: [email or web address]
--- NOTE | 2019-09-04 15:19 | RADIOLOGY REPORT (SQ) ---
EXAM DESCRIPTION: MRI THORACIC SPINE COMBO COMPLETED DATE/TIME: 09/04/2019 2:13 pm REASON FOR STUDY: G95.20 UNSPECIFIED CORD COMPRESSION G95.20 UNSPECIFIED CORD COMPRESSION COMPARISON: 07/05/2019. TECHNIQUE: Sagittal and Axial imaging includes T1, T2, STIR and gradient echo sequences. T1 post ga dolinium sequences. CONTRAST TYPE AND DOSE: 10 mL Dotarem. RENAL FUNCTION: Not indicated. ACR Type II contrast agent associated with few, if any, unconfounded cases of NSF LIMITATIONS: Motion artifact. FINDINGS: Exaggerated kyphosis. Chronic compression fractures T3, T 8, T12. Chronic degenerative c hanges in multiple endplates. No evidence of metastatic disease in the spine. No acute disc herniat ion or advanced spinal stenosis. Cord signal is normal. See recent chest CT for findings in the [facility]. IMPRESSION: No evidence of spinal metastasis. TECHNICAL DOCUMENTATION: JOB ID: [id number] [employer]- All Rights Reserved Reading location - IP/workstation name: [email or web address]
== END ==
LOC: RAD 12:12
PROVIDERS: ATTEND Internal Medicine Hematology & Oncology
DX: M48.54XD Collapsed vertebra, not elsewhere classified, thoracic region, subsequent encounter for fracture with routine healing (principal); M40.294 Other kyphosis, thoracic region; G95.20 Unspecified cord compression
CPT/HCPCS: 72156; 72157; A9576

== ENCOUNTER → 2019-11-07 | Outpatient (CLI) | payer MEDICARE, MEDICAID ==
--- NOTE | 2019-11-07 16:20 | RADIOLOGY REPORT (SQ) ---
EXAM DESCRIPTION: CT CHEST WITH; CT ABD/PELVIS WITH IV ONLY IMAGES COMPLETED DATE/TIME: 11/07/2019 3:53 pm REASON FOR STUDY: C34.92 MALIGNANT NEOPLASM OF UNSP PART OF RIGHT BRONCHUS OR LUNG C34.91 MALIGNANT NEOPLASM OF UNSP PART OF RIGHT BRONCHUS OR G31.84 MILD COGNITIVE IMPAIRMENT, SO STATED CONTRAST TYPE AND DOSE: contrast/concentration: Isovue 350.00 mg/ml; Total Contrast Delivered: 55.0 ml; Total Saline Delivered: 65.0 ml RENAL FUNCTION: Creatinine 0.9 COMPARISON: 08/23/2019 TECHNIQUE: CT scan of the chest performed using helical scanning technique with dynamic intravenous contrast injection. Images reviewed with lung, soft tissue and bone windows. Reconstructed coronal a nd sagittal MPR images reviewed. All images stored on PACS. All CT scanners at this facility use dose modulation, iterative reconstruction, and/or weight based d osing when appropriate to reduce radiation dose to as low as reasonably achievable (ALARA). [facility]: Dose Right [facility]: CareDose [facility]: Dose Right [facility]: Teradose 4D [facility]: Smart Tidemark RADIATION DOSE: CT Rad equipment meets quality standard of care and radiation dose reduction techniq ues were employed. CTDIvol: 4.5 - 5.8 mGy. DLP: 648 mGy-cm. . LIMITATIONS: None. FINDINGS: AXILLAE: No adenopathy. CHEST WALL: No masses. No subcutaneous air. LUNGS: Small nodules previously described in the right upper lobe, right middle lobe and left upper l obe are no longer identified. Persistent emphysematous changes with scattered areas pleural and pare nchymal scarring. Volume loss in the left base and effusion are grossly stable. PLEURA: As above. THYROID: No masses or significant asymmetry. HILAR AND MEDIASTINAL STRUCTURES: No pathologic adenopathy. AORTA AND GREAT VESSELS: Degenerative changes in thoracic aorta. PULMONARY ARTERIES: No identified pulmonary emboli. Study not optimized for the pulmonary arteries. HEART: No pericardial effusion. HARDWARE AND LIFELINES: None. BONES: No significant finding. OTHER: No other significant finding. IMPRESSION: Small pulmonary nodules previously described are no longer identified. No other signifi cant interval change when compared to prior exam. COMPARISON: None. RADIATION DOSE: CT Rad equipment meets quality standard of care and radiation dose reduction techniq ues were employed. CTDIvol: 4.5 - 5.8 mGy. DLP: 648 mGy-cm. mGy. TECHNIQUE: CT scan of the abdomen and pelvis performed with intravenous and oral contrast using alessandra lenoarda scanning technique with dynamic intravenous contrast injection. Images reviewed with lung, soft tissue and bone windows. Reconstructed coronal and sagittal MPR images reviewed. Delayed images for evaluation of the urinary system also acquired and evaluated. All images stored on PACS. All CT scanners at this facility use dose modulation, iterative reconstruction, and/or weight based d osing when appropriate to reduce radiation dose to as low as reasonably achievable (ALARA). [facility]: Dose Right [facility]: SureCare [facility]: Dose Right [facility]: Teradose 4D [facility]: [employer] FINDINGS: LIVER: Normal size. No masses. No dilated ducts. SPLEEN: Normal size. No focal lesions. PANCREAS: No masses. No significant calcifications. No adjacent inflammation or peripancreatic flui d collections. Pancreatic duct not dilated. GALLBLADDER: Surgically absent. ADRENAL GLANDS: No significant masses or asymmetry. RIGHT KIDNEY AND URETER: No solid masses. No significant calcifications. No hydronephrosis or hyd roureter. LEFT KIDNEY AND URETER: No solid masses. No significant calcifications. No hydronephrosis or hydr oureter. AORTA AND VESSELS: No aneurysm. No dissection. Renal arteries, SMA, celiac without stenosis. RETROPERITONEUM: No retroperitoneal adenopathy, hemorrhage or masses. LARGE AND SMALL BOWEL: No dilatation. No masses. No wall thickening. APPENDIX: Normal. ABDOMINAL WALL: No hernia or masses. PERITONEAL CAVITY: No free air. No free fluid. No peritoneal implants or masses. PELVIS: No mass or free fluid. Normal bladder. BONES: No interval change. Compression deformity at L3 is stable. OTHER: No other significant finding. IMPRESSION: No evidence of metastatic disease in the abdomen or pelvis. TECHNICAL DOCUMENTATION: JOB ID: [id number] Quality ID # [id number]: Final reports with documentation of one or more dose reduction techniques (e.g., Au tomated exposure control, adjustment of the mA and/or kV according to patient size, use of iterative reconstruction technique) 2010 [employer]- All Rights Reserved Reading location - IP/workstation name: [email or web address]
--- NOTE | 2019-11-08 08:28 | RADIOLOGY REPORT (SQ) ---
EXAM DESCRIPTION: MRI HEAD COMBO IMAGES COMPLETED DATE/TIME: 11/07/2019 4:25 pm REASON FOR STUDY: G31.84 MILD COGNITIVE IMPAIRMENT, SO STATED C34.91 MALIGNANT NEOPLASM OF UNSP PAR T OF RIGHT BRONCHUS OR G31.84 MILD COGNITIVE IMPAIRMENT, SO STATED COMPARISON: None. TECHNIQUE: Multiplanar imaging includes noncontrasted T1, T2, FLAIR, Diffusion with ADC map and post gadolinium contrast T1 sequences. Images stored on PACS. CONTRAST TYPE AND DOSE: 10 mL Dotarem RENAL FUNCTION: Not indicated. ACR Type II contrast agent associated with few, if any, unconfounded cases of NSF LIMITATIONS: None. FINDINGS: ANATOMY: No anomalies. Normal vascular flow voids. Pituitary fossa normal. CSF SPACES: Atrophy-induced prominence of CSF spaces and ventricles. CEREBRUM: High-signal intensity lesions scattered throughout the white matter on FLAIR imaging with d istribution suggesting chronic micro-vascular ischemic change. No evidence of hemorrhage, mass, extra axial fluid collection or acute ischemic change. No enhancing lesions. POSTERIOR FOSSA: No signal alteration. No hemorrhage. No edema, masses, or mass effect. Internal krissy tory canals, cerebello-pontine angles, mastoids normal. No enhancing lesions. ORBITS: No masses. Globes normal. PARANASAL SINUSES: No fluid levels. Mucosa normal. DIFFUSION: Normal. No evidence of recent infarct. OTHER: No other significant finding. IMPRESSION: ATROPHY AND CHRONIC MICRO-VASCULAR ISCHEMIC CHANGES. OTHERWISE UNREMARKABLE MRI OF THE B RAIN WITHOUT AND WITH INTRAVENOUS GADOLINIUM CONTRAST. EVIDENCE OF ACUTE STROKE: NO. TECHNICAL DOCUMENTATION: JOB ID: [id number] 2010 [employer]- All Rights Reserved Reading location - IP/workstation name: [email or web address]
== END ==
LOC: RAD 15:13
PROVIDERS: ATTEND Internal Medicine Hematology & Oncology
DX: C34.92 Malignant neoplasm of unspecified part of left bronchus or lung (principal); G31.84 Mild cognitive impairment of uncertain or unknown etiology
CPT/HCPCS: 82565; 70553; 71260; 74177; A9576

== ENCOUNTER → 2019-11-17 | Outpatient (CLI) | payer MEDICARE, MEDICAID ==
[2019-11-17 13:05] VITALS: BP 149/69
--- NOTE | 2019-11-17 13:05 | ER RDC ASSESSMENT REPORT ---
Intake - In the Last 14 days Have you traveled outside [place]?: No Have you been in close contact with someone CONFIRMED: No Worked in Healthcare?: No - Symptoms Subjective Fever([place] feverish): Yes Chills: Yes Muscule Aches: Yes Runny Nose: No Sore Throat: Yes Cough (New or worsening chronic cough): Yes Shortness of breath: No Nausea or Vomiting: Yes Headache: No Abdominal Pain: Yes Diarrhea(3 or more loose stools in last 24 hours): No - Do you have any of the following Chronic lung disease: Asthma or emphysema or COPD: Yes Chronic Lung Disease Comment: COPD and Lung Cancer. Cystic Fibrosis: No Diabetes: No High Blood Pressure: No Cardiovascular Disease: No Chronic Kidney Disease: No Chronic Liver Disease: No Chronic blood disorder like Sickle Cell Disease: No Weak immune system due to disease or medication: Yes Immune System Comment: Patient is currently undergoing treatment for lung cancer. Neurologic condition that limits movement: No Developmental delay - Moderate to Severe: No Recent (within past 2 weeks) or current : No Morbid Obesity (>100 pounds over ideal weight): No - Objective Temperature: 99.5 F Pulse Rate: 111 Respiratory Rate: 20 Blood Pressure: 149/69 O2 Sat by Pulse Oximetry: 91 Objective: Patient is an ill-appearing 74-year-old male who was sent by his Oncologist, Dr. Helton for COVID-19 Screening. General - General Stated Complaint: Upper respiratory symptoms x2 weeks Mode of Arrival: Ambulatory Information source: Patient Notes: The patient was evaluated during the global COVID 19 pandemic, and that diagnosis was suspected/considered upon their initial presentation. Their evaluation, treatment, and testing was consistent with current guidelines for patients who present with complaints or symptoms that may be related to COVID 19. - HPI Patient complains to provider of: Upper respiratory symptoms Onset: Other - 2 weeks Onset/Duration: Persistent Quality of pain: Achy Severity: Moderate Pain Level: 3 Context: Generalized body aches. Associated symptoms: Body/muscle aches, Chills, Nonproductive cough, Fever, Nausea, Vomiting, Sore throat Exacerbated by: Denies Relieved by: Denies Similar symptoms previously: No Recently seen / treated by doctor: No - Related Data Allergies/Adverse Reactions: No Known Allergies Allergy (Verified 10/21/18 15:37) Past Medical History - Social History Smoking Status: Current Every Day Smoker Cigarette use (# per day): Yes - Vapes Chew tobacco use (# tins/day): No Smoking Education Provided: Yes Frequency of alcohol use: None Drug Abuse: None Occupation: Retired Lives with: Family Family History: Reviewed & Not Pertinent Patient has suicidal ideation: No Patient has homicidal ideation: No - Past Medical History Cardiac Medical History: Reports: Hx Hypertension Pulmonary Medical History: Reports: Hx COPD Renal/ Medical History: Denies: Hx Peritoneal Dialysis Past Surgical History: Reports: Hx Cholecystectomy, Hx Genitourinary Surgery Physical Exam - General General appearance: Other - Acutely ill appearing In distress: None Notes: PHYSICAL EXAMINATION: GENERAL: Ill-appearing and in no acute distress. HEAD: Atraumatic, normocephalic. EYES: sclera anicteric, conjunctiva are normal. ENT: nares patent. Moist mucous membranes. NECK: Normal range of motion, supple without lymphadenopathy. LUNGS: CTAB and equal. No wheezes rales or rhonchi. HEART: Regular rate and rhythm without murmurs. EXTREMITIES: Normal range of motion, no pitting edema. No cyanosis. BACK: No midline or CVA tenderness. NEUROLOGICAL: Cranial nerves grossly intact. Normal speech. PSYCH: Normal mood, normal affect. SKIN: Warm, Dry, normal color and turgor, no obvious lesions or rash noted. Patient has current Dx. of COPD and Lung Cancer, his O2 Saturation of 91% is his normal baseline. Patient uses 3LNC oxygen while at home, he is on RA at time of examination. Diagnostic Results Laboratory Results: Patient notified of NEGATIVE results on Rapid Flu (A & B) and Rapid Strep. Advised Throat Culture and COVID testing are PENDING, and they will be notified of any POSITIVE results at a later date/time. Patient Education/Counseling Counseling/Education: Patient presents with upper respiratory symptoms worrisome for possible Covid 19. Patient does not have emergency worring symptoms such as difficulty breathing, shortness of breath, chest pain, pressure, confusion or cyanosis. Patient appears suitable for discharge. Patient's vital signs are stable and patient is nontoxic in appearance. Good return precautions have been discussed with patient, patient verbalized understanding and is agreeable with discharge plan of care at this time. Patient provided COVID 19 discharge instructions to include: As a person under investigation for Covid 19, the [facility] Health and [facility] Services, division of public health advises you to adhere to the following guidance until your test results are reported to you. If your test result is positive, you will receive additional information from your provider and your local health department at that time. Remain at home until you are cleared by the health provider or public health authorities. Keep a log of visitors to your home, notify any visitors to your home of your isolation status. If you plan to move to a new address or leave the county, notify the local health department in your County. Call your doctor or seek care if you have an urgent medical need. Before seeking medical care, call ahead to get instructions from the provider before arriving at the medical office clinic or hospital. Notify them that you are being tested for the virus that causes Covid 19 so that arrangements can be made, as necessary, to prevent transmission to others in the healthcare setting. Next, notify the local health department in your county. If a medical emergency arises and you need to call 911, inform dispatch and the first responders that you are being tested for the virus that causes Covid 19. Next, notify the local health department in your county. Patient provided education on smoking cessation, including the harmful effects of smoking and/or vaping, and the increased health benefits of quitting. Guidance for worsening S/SX: For worsening symptoms, patient has been advised to contact their Primary Care Provider, or go to the nearest Emergency Department. RDC Discharge - Discharge Clinical Impression: COVID-19 Screening URI (upper respiratory infection) Qualifiers: URI type: unspecified URI Qualified Code(s): J06.9 - Acute upper respiratory infection, unspecified Condition: Stable Disposition: Home; Selfcare
[2019-11-17 13:12] LABS: A TYPE INFLUENZA AG NEGATIVE (NEGATIVE); B INFLUENZA AG NEGATIVE (NEGATIVE)
== END ==
LOC: RDC 11:42
PROVIDERS: ATTEND Nurse Practitioner Family
DX: J06.9 Acute upper respiratory infection, unspecified (principal); Z20.828 Contact with and (suspected) exposure to other viral communicable diseases; R50.9 Fever, unspecified; C34.90 Malignant neoplasm of unspecified part of unspecified bronchus or lung; J02.9 Acute pharyngitis, unspecified; J44.9 Chronic obstructive pulmonary disease, unspecified; R05 Cough; I10 Essential (primary) hypertension; R11.2 Nausea with vomiting, unspecified; M79.10 Myalgia, unspecified site; R10.9 Unspecified abdominal pain; F17.290 Nicotine dependence, other tobacco product, uncomplicated
CPT/HCPCS: 87070; 87880; 87804; U0003; G0463; 87635; 99211

== ENCOUNTER → 2020-03-06 | Outpatient (CLI) | payer MEDICARE, MEDICAID ==
--- NOTE | 2020-03-06 14:19 | RADIOLOGY REPORT (SQ) ---
EXAM DESCRIPTION: CT CHEST WITH IMAGES COMPLETED DATE/TIME: 03/06/2020 10:44 am REASON FOR STUDY: C34.92 MALIGNANT NEOPLASM OF UNSP PART OF LEFT BRONCHUS OR LUNG C34.92 MALIGNANT NEOPLASM OF UNSP PART OF LEFT BRONCHUS OR L COMPARISON: 11/07/2019 and 02/12/2019 TECHNIQUE: CT scan of the chest performed using helical scanning technique with dynamic intravenous contrast injection. Images reviewed with lung, soft tissue and bone windows. Reconstructed coronal and sagittal MPR and MIP images reviewed. All images stored on PACS. All CT scanners at this facility use dose modulation, iterative reconstruction, and/or weight based d osing when appropriate to reduce radiation dose to as low as reasonably achievable (ALARA). [facility]: Dose Right [facility]: CareDose [facility]: Dose Right [facility]: Teradose 4D [facility]: [employer] CONTRAST TYPE AND DOSE: contrast/concentration: Isovue 350.00 mmol/ml; Total Contrast Delivered: 80. 0 ml; Total Saline Delivered: 55.0 ml RENAL FUNCTION: GFR > 60. RADIATION DOSE: CT Rad equipment meets quality standard of care and radiation dose reduction techniq ues were employed. CTDIvol: 7.0 mGy. DLP: 250 mGy-cm. . LIMITATIONS: None. FINDINGS: LUNGS AND PLEURA: Masslike consolidation seen of the left upper and lower lobes posterior to the hilum appears to be increased in volume on today's examination. Stable left hemithorax volume loss. The lungs otherwise appear stable demonstrating scattered scarring superimposed upon a backgr ound of severe centrilobular emphysematous change. HILAR AND MEDIASTINAL STRUCTURES: A mildly prominent precarinal lymph node is stable in the study int erval. No mediastinal masses. HEART AND VASCULAR STRUCTURES: No aneurysm or dissection. No central pulmonary emboli. No pericardi al effusion. HARDWARE: None in the chest. UPPER ABDOMEN: No significant findings. Limited exam. THYROID AND OTHER SOFT TISSUES: No masses. No adenopathy. BONES: Stable appearance osteopenia, degenerative changes, and midthoracic vertebral compression frac ture P no suspicious lytic or blastic osseous lesion. Multiple healed right rib fractures. OTHER: No other significant finding. IMPRESSION: Masslike consolidation seen posterior to the left hilum appears somewhat increased in vo lume in the study interval. Otherwise stable CT appearance of the chest. TECHNICAL DOCUMENTATION: JOB ID: [id number] Quality ID # [id number]: Final reports with documentation of one or more dose reduction techniques (e.g., Au tomated exposure control, adjustment of the mA and/or kV according to patient size, use of iterative reconstruction technique) 2010 [employer]- All Rights Reserved Reading location - IP/workstation name: [email or web address]
== END ==
LOC: RAD 09:52
PROVIDERS: ATTEND Internal Medicine Hematology & Oncology
DX: C34.92 Malignant neoplasm of unspecified part of left bronchus or lung (principal)
CPT/HCPCS: 71260; 82565